=== PATIENT | female | born 1960 | race Caucasian/White ===

== ENCOUNTER 2018-05-03 06:15 | Emergency (ER) | payer OTHER ==
[~2018-05-03] VITALS: Ht 177.8 cm; Wt 59.0 kg
--- NOTE | 2018-05-03 07:03 | ED NECK/BACK PAIN COMPLAINT ---
History of Present Illness General Chief Complaint: General Adult Stated Complaint: NECK, LEFT SHOULDER AND WRIST PAIN Source: patient, old records Exam Limitations: no limitations Vital Signs & Intake/Output Vital Signs & Intake/Output Vital Signs Date Time Temp Pulse Resp B/P B/P Pulse O2 O2 Flow FiO2 Mean Ox Delivery Rate 05/03 0859 144/80 05/03 0857 97.0 78 20 177/92 96 Room Air 05/03 0712 97.0 80 20 133/88 100 Room Air 05/03 0639 98.2 89 16 135/85 100 Room Air Allergies Coded Allergies: Sulfa (Sulfonamide Antibiotics) (RASH 05/03/18) ciprofloxacin (From CIPRO) (NAUSEA 05/03/18) Triage Note: PT TO ED C/O ?ALLERGIC REACTION TO AUGMENTIN. TOOK ONE DOSE AUGEMENTIN ON 04/28 "AND I WOKE UP THE NEXT MORNING WITH NECK PAIN, LEFT SHOULDER PAIN AND LEFT WRIST PAIN THE NEXT MORNING" "I FELT LIKE I GOT HIT BY A TRUCK" DENIES INJURY. PMH OF CHRONIC UTI'S. "MY DOCTOR TOLD ME TO COME TO THE ED YESTERDAY BUT I DIDN'T HAVE TIME" VSS Triage Nurses Notes Reviewed? yes HPI: Patient took a dose of Augmentin on Friday evening for a urinary tract infection. She woke up Friday morning feeling like she was hit by a bus. Patient states that all of her muscles hurt. Patient did not take any Augmentin. Patient states over the next few days her symptoms began to feel better however she still has pain to the back of her neck. The pain increases with movement of her head. There is no weakness or numbness. There is no radiation of the pain. There are no fevers or chills. Patient called her primary care physician on Friday for an appointment per primary care physician told her just to go to the emergency department instead. She rates the pain at a 6 out of 10. The pain is aching and throbbing in nature. Past History Travel History Traveled to [place] past 21 day No Medical History Any Pertinent Medical History? see below for history Neurological: peripheral neuropathy, vertigo Cardiovascular: hypertension Gastrointestinal: GERD Renal: KIDNEY INFECTION Psychiatric: bipolar disease, insomnia Endocrine: diabetes Surgical History Surgical History: non-contributory Psychosocial History What is your primary language Setswana Tobacco Use: Current Daily Use Daily Tobacco Use Amount/Type: => 5 Cigarettes daily ETOH Use: occasional use Illicit Drug Use: denies illicit drug use Family History Hx Contributory? No Review of Systems Review of Systems Constitutional: Reports: no symptoms. Eyes: Reports: no symptoms. Ears, Nose, Throat, Mouth: Reports: no symptoms. Respiratory: Reports: no symptoms. Cardiovascular: Reports: no symptoms. Gastrointestinal/Abdominal: Reports: no symptoms. Musculoskeletal: Reports: see HPI, neck pain. Skin: Reports: no symptoms. Neurological/Psychological: Reports: no symptoms. All Other Systems: Reviewed and Negative Physical Exam Physical Exam General Appearance: well developed/nourished, mild distress Head: atraumatic Eyes: Bilateral: PERRL, EOMI. Ears, Nose, Throat, Mouth: hearing grossly normal, moist mucous membrane Neck: muscle spasm, no midline tenderness Respiratory: normal breath sounds, chest non-tender, no respiratory distress, lungs clear Cardiovascular: regular rate/rhythm, normal peripheral pulses Gastrointestinal: normal bowel sounds, soft, non-tender Back: normal inspection, no vertebral tenderness Extremities: normal range of motion Neurologic/Psych: awake, alert, oriented x 3, normal mood/affect Skin: intact, normal color, warm/dry Core Measures CVA/TIA Diagnosis: No Progress Differential Diagnosis: myofascial strain Plan of Care: Orders Procedure Date/time Status URINALYSIS 05/03 703 Complete COMPREHENSIVE METABOLIC PANEL 05/03 702 Complete CBC WITHOUT DIFFERENTIAL 05/03 702 Complete Laboratory Tests 05/03/18 0825: Urine Color YEL, Urine Clarity CLEAR, Urine pH 6.0, Ur Specific [place] 1.020, Urine Protein 30 H, Urine Ketones NEG, Urine Nitrite NEG, Urine Bilirubin NEG, Urine Urobilinogen 1.0, Ur Leukocyte Esterase SMALL H, Ur Microscopic SEDIMENT EXAMINED, Urine WBC 10-15 H, Ur Epithelial Cells FEW, Urine Bacteria FEW H, Urine Hemoglobin NEG, Urine Glucose NEG 05/03/18 0710: Anion Gap 12, Estimated GFR > 60, BUN/Creatinine Ratio 17.5, Glucose 127 H, Calcium 10.4 H, Total Bilirubin 0.4, AST 20, ALT 24, Alkaline Phosphatase 67, Total Protein 6.5, Albumin 3.7, Globulin 2.8, Albumin/Globulin Ratio 1.3, CBC w Diff NO MAN DIFF REQ, RBC 3.97 L, MCV 98.2, MCH 33.1 H, MCHC 33.7, RDW 14.9 H , MPV 7.9, Gran % 61.5, Lymphocytes % 28.4, Monocytes % 7.6, Eosinophils % 2.1, Basophils % 0.4, Absolute Granulocytes 6.4, Absolute Lymphocytes 2.9, Absolute Monocytes 0.8 H, Absolute Eosinophils 0.2, Absolute Basophils 0 Departure Departure Disposition: HOME OR SELF CARE Condition: Stable Clinical Impression Primary Impression: UTI (urinary tract infection) Secondary Impressions: Muscle spasm Referrals: Yanely Anderson APRN (PCP/Family) Additional Instructions: DRINK PLENTY OF FLUIDS TAKEKEFLEX PRESCRIBED TAKE FLEXERIL NEEDED FOR SPASM. FLEXERIL IS SEDATING SO DO NOT DRIVE AFTER TAKING IT RETURN IF SYMPTOMS WORSENOR FOR ANY CONCERNS Departure Forms: Customer Survey General Discharge Information Prescriptions: Current Visit Scripts Cyclobenzaprine HCl 1 TAB PO Q8P #20 TAB Cephalexin (Keflex) 1 CAP PO TID #21 CAP
[2018-05-03 07:58] LABS: ABSOLUTE BASOPHIL COUNT 0 /CUMM (0.0-0.2); ABSOLUTE EOSINOPHIL COUNT 0.2 /CUMM (0.0-0.7); ABSOLUTE GRANULOCYTE CT 6.4 /CUMM (1.4-6.5); ABSOLUTE LYMPH COUNT 2.9 /CUMM (1.2-3.4); ABSOLUTE MONOCYTE COUNT 0.8 /CUMM (0.10-0.60); BASOPHIL % 0.4 % (0.0-2.0); EOSINOPHIL % 2.1 % (0-5); GRANULOCYTE % 61.5 % (42.2-75.2); MEAN CORPUSCULAR HGB 33.1 PG (27.0-31.0); MEAN CORPUSCULAR HGB CONC 33.7 G/DL (33.0-37.0); MEAN CORPUSCULAR VOLUME 98.2 FL (81.0-99.0); MEAN PLATELET VOLUME 7.9 FL (7.4-10.4); PLATELET COUNT 257 /CUMM (130-400); RBC DISTRIBUTION WIDTH 14.9 % (11.5-14.5); RED BLOOD CELL CT 3.97 /CUMM (4.20-5.40); WHITE BLOOD CELL COUNT 10.3 /CUMM (4.8-10.8)
[2018-05-03 08:59] VITALS: BP 144/80
[2018-05-03] MEDS ORDERED: KEFLEX250 M1 PO (09:21)
[2018-05-03] MEDS ORDERED: CYCLOBENZAPRINE10 M1 PO (09:21)
== END 2018-05-03 09:23 ==
LOC: ERH 06:15
PROVIDERS: Emergency Medicine
DX: N39.0 Urinary tract infection, site not specified (principal); M62.838 Other muscle spasm
CPT/HCPCS: 81001